=== PATIENT | male | born 1975 | race African-American/Black ===

== ENCOUNTER 2017-01-03 13:52 | Emergency (ER) | payer MEDICARE, OTHER ==
[~2017-01-03] VITALS: Ht 182.9 cm; Wt 116.1 kg
[~2017-01-03 13:52] MED LIST: ACETAMINOPHEN325 M1 ORAL; AMBIEN5 MG ORAL; CLONIDINE0.1 MG ORAL; CLONIDINE0.1 MG PO; COLACE100 MG ORAL; COLACE250 MG ORAL; DULCOLAX5 MG ORAL; HEPARIN SO5000 UNIT2 SUBQ; METOPROLOL TAR100 M1 ORAL; METOPROLOL TAR100 MG ORAL; MIRALAX17 GM ORAL; ONDANSETRON4 MG/2 M2 PO; PERCOCET1 TAB ORAL; RENAGEL400 MG ORAL; RENVELA800 MG ORAL; SENSIPAR30 MG ORAL
[2017-01-03] MEDS ORDERED: cloNIDine 0.2mg Tab ORAL ONE (14:15)
[2017-01-03 14:31] VITALS: BP 193/129
--- NOTE | 2017-01-03 17:50 | Emergency Room Report ---
History of Present Illness General Chief Complaint: Hypertension Source: Patient, Medical Record Present Illness HPI [id number] with known HTN and HD with CKD on multiple medications for HTN presents with "I feel like my pressure is high." Non-compliant for 2 days with Clonidine ?0.2mg BID and "new medication" that he says doesnt work. When asked why he feels like pressure is high, denies chest pain, headache, SOB , dizziness, back pain, abd pain to name a few. Denies other complaints Denies ETOH, drug use Allergies: Coded Allergies: ACETAMINOPHEN (Verified Allergy, Severe, Itching, 10/07/13) HYDROCODONE (Verified Allergy, Severe, Itching, 10/07/13) Uncoded Allergies: noroc (Allergy, Severe, Itching, 10/07/13) Patient History Past Medical History: HTN, renal disease Past Surgical History: none Pertinent Family History: none Social History: Denies: smoking, alcohol use, drug use Immunizations: UTD Reviewed Nursing Documentation: PMH: Agreed, PSxH: Agreed Nursing Documentation-PMH Hx Cardiac Problems: Yes Hx Hypertension: Yes Hx Cancer: No Hx Gastrointestinal Problems: No Hx Dialysis: Yes - shunt left forearm Hx Neurological Problems: No Review of Systems All Other Systems: negative except mentioned in HPI Physical Exam Vital Signs Date Time Temp Pulse Resp B/P (MAP) Pulse Ox O2 Delivery O2 Flow Rate FiO2 01/03/17 13:55 98.1 86 16 225/144 97 Room Air Sp02 EP Interpretation: reviewed, normal General Appearance: normal inspection, well appearing, no apparent distress, alert, GCS 15, non-toxic Head: normocephalic, atraumatic Eyes: bilateral eye PERRL, bilateral eye EOMI ENT: normal ENT inspection, hearing grossly normal, normal voice Neck: normal inspection, full range of motion, supple, no bony tend Respiratory: normal inspection, lungs clear, normal breath sounds, no respiratory distress, no retraction, no wheezing Cardiovascular #1: regular rate, rhythm, no edema Gastrointestinal: normal inspection, normal bowel sounds, non tender, soft, no guarding, no hernia Genitourinary: no CVA tenderness, penis normal Musculoskeletal: normal inspection, back normal, normal range of motion, Loraine' s Sign negative Neurologic: normal inspection, alert, oriented x3, responsive, cable hooker III-XII nml as tested, motor strength/tone normal, speech normal Psychiatric: normal inspection, judgement/insight normal, mood/affect normal Skin: normal inspection, normal color, no rash Lymphatic: normal inspection Medical Decision Making Diagnostic Impression: Primary Impression: Hypertension Qualified Codes: I10 - Essential (primary) hypertension ER Course Uncontrolled HTN likely d/t non-compliance Concern for rebound HTN given stopped taking clonidine as well Asymptomatic No focal neuro deficits or other symptoms to suggest HTN emergency Was given dose of clonidine in ED BP down from 225/144 to 193/129 ACEP doesnt recommend acute lowering asymptomatic BP in the ED as may worsen patient's clinical outcome Has enough meds at home - states doesnt need refill Advised to take meds, followup with PMD Last Vital Signs Date Time Temp Pulse Resp B/P (MAP) Pulse Ox O2 Delivery O2 Flow Rate FiO2 01/03/17 14:31 78 18 193/129 99 Room Air 01/03/17 14:31 98.2 Status: improved Disposition: HOME, SELF-CARE Condition: Improved Referrals: NOT CHOSEN IPA/MD,REFERRING (PCP) Patient Instructions: Managing Your High Blood Pressure Additional Instructions: - Continue to take Clonidine and other BP meds your primary care doctor prescribed you. Follow up with your doctor to discuss any changes in BP medications. Do NOT make any changes on your own. - Return to ER for severe chest pain, severe headache. JEMIMA HERNANDEZ M.D. Jan 03, 2017 17:50
== END 2017-01-03 14:38 | disposition home or self-care (01) ==
LOC: EMR 14:08
DX: I12.9 Hypertensive chronic kidney disease with stage 1 through stage 4 chronic kidney disease, or unspecified chronic kidney disease (principal); N18.9 Chronic kidney disease, unspecified; Z88.8 Allergy status to other drugs, medicaments and biological substances; Z99.2 Dependence on renal dialysis; Z91.14 Patient's other noncompliance with medication regimen
CPT/HCPCS: 99283

== ENCOUNTER 2017-06-16 11:41 | Outpatient (CLI) | payer MEDICARE, OTHER ==
[2017-06-16 13:02] LABS: ANION GAP 8 mmol/L (5-15); BLOOD UREA NITROGEN 42 mg/dL (7-18); CALCIUM 8.6 MG/DL (8.5-10.1); CARBON DIOXIDE 31 MMOL/L (21-32); CHLORIDE 101 MMOL/L (98-107); CREATININE 12.9 MG/DL (0.55-1.30); POTASSIUM 4.6 MMOL/L (3.5-5.1); SODIUM 140 MMOL/L (136-145)
[2017-06-16 13:22] LABS: HEMOGLOBIN 11.8 G/DL (14.2-18.0); LYMPHOCYTES % (AUTO) 29.8 % (20.0-45.0); MEAN CORPUSCULAR VOLUME 96 FL (80-99); MONOCYTES % (AUTO) 6.8 % (1.0-10.0); NEUTROPHILS % (AUTO) 60.4 % (45.0-75.0); PLATELET COUNT 164 K/UL (150-450); RED BLOOD COUNT 3.63 M/UL (4.70-6.10); RED CELL DISTRIBUTION WIDTH 15.7 % (11.6-14.8); WHITE BLOOD COUNT 4.1 K/UL (4.8-10.8)
== END 2017-06-16 13:41 | disposition home or self-care (01) ==
LOC: LAB 11:41
DX: I10 Essential (primary) hypertension (principal)
CPT/HCPCS: 36415; 80048; 85025; 85610; 85730